=== PATIENT | female | born 1945 | race Caucasian/White ===

== ENCOUNTER 2016-05-17 01:30 | Inpatient (IN) | payer MEDICARE, MEDICAID ==
[~2016-05-17] VITALS: Ht 172.7 cm; Wt 96.3 kg
[~2016-05-17 01:30] MED LIST: CARI350T14 PO; CLON-364 PO; DABI150C PO; DILT180C95 PO; DIVA500T2 PO; DOCU100C8 PO; FURO40TA6 PO; HYDR-3241 PO; MIRT30TA4 PO; NITR50CA PO; POTA20TA89 PO; SPIR25TA3 PO; TOPI50TA35 PO; ZOLP10TA PO
[2016-05-17] MEDS ORDERED: SODIUM CHLORIDE FLUSH 10ML SYR IVF ONE (02:00)
[2016-05-17 03:46] LABS: HEMOGLOBIN 14.7 g/dL (11.7-16.4)
[2016-05-17 04:04] LABS: IS PT STATUS REG ER OR PRE ER? YES
[2016-05-17 04:15] LABS: ASPARTATE AMINO TRANSFERASE 14 U/L (15-37); BLOOD UREA NITROGEN 15 mg/dL (7-18)
[2016-05-17] MEDS ORDERED: ACETAMINOPHEN 325 MG TABLET PO PRN (07:00)
[2016-05-17] MEDS ORDERED: ONDANSETRON 2MG/ML, 2ML IVP PRN (07:00)
[2016-05-17] MEDS: SODIUM CHLORIDE 0.9% 1,000 ML IV SCH ×3 (07:00→23:39)
[2016-05-17] MEDS: DOCUSATE 100 MG CAPSULE PO SCH ×2 (09:00→20:52)
[2016-05-17] MEDS: DILTIAZEM 240 MG CAP.ER.24H PO SCH (10:07)
[2016-05-17] MEDS: SPIRONOLACTONE 25 MG TABLET PO SCH (10:07)
[2016-05-17] MEDS: SENNA/DOCUSATE TABLET PO SCH (10:07)
[2016-05-17] MEDS: TOPIRAMATE 25 MG TABLET PO SCH ×2 (10:07→20:55)
[2016-05-17] MEDS: DIVALPROEX 500 MG TABLET.DR PO SCH ×2 (10:07→20:52)
[2016-05-17] MEDS: POTASSIUM CHLORIDE 20 MEQ TAB.ER.PRT PO SCH ×2 (10:08→20:53)
[2016-05-17] MEDS: DABIGATRAN 150 MG CAPSULE PO SCH ×2 (10:10→20:53)
[2016-05-17] MEDS: CEFTRIAXONE PMX 2GM/50ML 50 ML IV SCH (11:30)
[2016-05-17 12:30] VITALS: BP 120/77
[2016-05-17 19:01] VITALS: BP 106/56
[2016-05-17] MEDS: MIRTAZAPINE 15 MG TABLET PO SCH (20:54)
[2016-05-18 01:31] VITALS: BP 106/54
[2016-05-18] MEDS: SODIUM CHLORIDE 0.9% 1,000 ML IV SCH (04:48)
[2016-05-18 06:12] LABS: BLOOD UREA NITROGEN 13 mg/dL (7-18)
[2016-05-18 07:04] VITALS: BP 107/66
[2016-05-18] MEDS: CEFTRIAXONE PMX 2GM/50ML 50 ML IV SCH (07:30)
[2016-05-18] MEDS: DIVALPROEX 500 MG TABLET.DR PO SCH ×2 (08:36→20:13)
[2016-05-18] MEDS: DILTIAZEM 240 MG CAP.ER.24H PO SCH (08:36)
[2016-05-18] MEDS: SPIRONOLACTONE 25 MG TABLET PO SCH (08:36)
[2016-05-18] MEDS: DABIGATRAN 150 MG CAPSULE PO SCH ×2 (08:37→20:13)
[2016-05-18] MEDS: TOPIRAMATE 25 MG TABLET PO SCH ×2 (08:37→20:14)
[2016-05-18] MEDS: SENNA/DOCUSATE TABLET PO SCH (08:37)
[2016-05-18] MEDS: POTASSIUM CHLORIDE 20 MEQ TAB.ER.PRT PO SCH ×2 (08:37→20:13)
[2016-05-18] MEDS: DOCUSATE 100 MG CAPSULE PO SCH ×2 (08:37→20:14)
[2016-05-18] MEDS ORDERED: LORazepam 0.5MG TABLET PO ONE (09:30)
[2016-05-18 12:30] VITALS: BP 119/83
[2016-05-18 19:29] VITALS: BP 107/68
[2016-05-18] MEDS: MIRTAZAPINE 15 MG TABLET PO SCH (20:13)
[2016-05-19 01:43] VITALS: BP 95/66
[2016-05-19 07:00] VITALS: BP 104/79
[2016-05-19] MEDS: DIVALPROEX 500 MG TABLET.DR PO SCH ×2 (07:47→20:42)
[2016-05-19] MEDS: SPIRONOLACTONE 25 MG TABLET PO SCH (09:03)
[2016-05-19] MEDS: TOPIRAMATE 25 MG TABLET PO SCH ×2 (09:04→20:42)
[2016-05-19] MEDS: POTASSIUM CHLORIDE 20 MEQ TAB.ER.PRT PO SCH ×2 (09:04→20:42)
[2016-05-19] MEDS: DABIGATRAN 150 MG CAPSULE PO SCH ×2 (09:04→20:42)
[2016-05-19] MEDS: SENNA/DOCUSATE TABLET PO SCH (09:04)
[2016-05-19] MEDS: DILTIAZEM 240 MG CAP.ER.24H PO SCH (09:04)
[2016-05-19] MEDS: DOCUSATE 100 MG CAPSULE PO SCH ×2 (09:04→20:42)
[2016-05-19 13:05] VITALS: BP 136/76
[2016-05-19 19:34] VITALS: BP 122/68
[2016-05-19] MEDS: MIRTAZAPINE 15 MG TABLET PO SCH (20:42)
[2016-05-20 01:49] VITALS: BP 96/57
[2016-05-20] MEDS: DIVALPROEX 500 MG TABLET.DR PO SCH ×2 (07:47→21:56)
[2016-05-20 08:05] VITALS: BP 98/74
[2016-05-20] MEDS: SPIRONOLACTONE 25 MG TABLET PO SCH (09:22)
[2016-05-20] MEDS: DILTIAZEM CD 180 MG CAP.ER.24H PO SCH (09:23)
[2016-05-20] MEDS: DABIGATRAN 150 MG CAPSULE PO SCH ×2 (09:24→21:55)
[2016-05-20] MEDS: TOPIRAMATE 25 MG TABLET PO SCH ×2 (09:24→21:57)
[2016-05-20] MEDS: DOCUSATE 100 MG CAPSULE PO SCH ×2 (09:24→21:59)
[2016-05-20] MEDS: SENNA/DOCUSATE TABLET PO SCH (09:24)
[2016-05-20] MEDS: POTASSIUM CHLORIDE 20 MEQ TAB.ER.PRT PO SCH ×2 (09:25→21:59)
[2016-05-20 12:56] VITALS: BP 116/68
[2016-05-20 20:00] VITALS: BP 144/90
[2016-05-20] MEDS: MIRTAZAPINE 15 MG TABLET PO SCH (21:58)
[2016-05-21 02:26] VITALS: BP 109/70
[2016-05-21 06:27] VITALS: BP 116/78
[2016-05-21] MEDS: DABIGATRAN 150 MG CAPSULE PO SCH ×2 (08:03→20:15)
[2016-05-21] MEDS: POTASSIUM CHLORIDE 20 MEQ TAB.ER.PRT PO SCH ×2 (08:03→20:15)
[2016-05-21] MEDS: DOCUSATE 100 MG CAPSULE PO SCH ×2 (08:04→20:16)
[2016-05-21] MEDS: DILTIAZEM CD 180 MG CAP.ER.24H PO SCH (08:04)
[2016-05-21] MEDS: SENNA/DOCUSATE TABLET PO SCH (08:04)
[2016-05-21] MEDS: DIVALPROEX 500 MG TABLET.DR PO SCH ×2 (08:04→20:16)
[2016-05-21] MEDS: TOPIRAMATE 25 MG TABLET PO SCH (08:04)
[2016-05-21] MEDS: SPIRONOLACTONE 25 MG TABLET PO SCH (08:04)
[2016-05-21 14:08] VITALS: BP 113/79
[2016-05-21 20:44] VITALS: BP 117/77
[2016-05-22 02:02] VITALS: BP 119/75
[2016-05-22 06:39] VITALS: BP 124/83
[2016-05-22] MEDS: DOCUSATE 100 MG CAPSULE PO SCH (09:00)
[2016-05-22] MEDS: POTASSIUM CHLORIDE 20 MEQ TAB.ER.PRT PO SCH (09:20)
[2016-05-22] MEDS: DIVALPROEX 500 MG TABLET.DR PO SCH (09:21)
[2016-05-22] MEDS: DABIGATRAN 150 MG CAPSULE PO SCH (09:21)
[2016-05-22] MEDS: DILTIAZEM CD 180 MG CAP.ER.24H PO SCH (09:21)
[2016-05-22] MEDS: SENNA/DOCUSATE TABLET PO SCH (09:21)
[2016-05-22] MEDS: SPIRONOLACTONE 25 MG TABLET PO SCH (09:21)
[2016-05-22] MEDS ORDERED: DILT180C53 PO (12:54)
[2016-05-22] MEDS ORDERED: POTA20PA8 PO (13:07)
[2016-05-22 13:23] VITALS: BP 103/70
[2016-05-22 15:59] VITALS: BP 110/79
== END 2016-05-22 16:15 | DRG 948 ==
LOC: ED 03:51 → EDIP 06:53 → 4NOR 09:05
PROVIDERS: ADMIT Internal Medicine; ATTEND Internal Medicine
PROC: 0T9B70Z Drainage of Bladder with Drainage Device, Via Natural or Artificial Opening (ICD-10-PCS; principal; 2016-05-17)
DX: R53.1 Weakness (principal); E44.1 Mild protein-calorie malnutrition; W18.30XA Fall on same level, unspecified, initial encounter; I10 Essential (primary) hypertension; F31.9 Bipolar disorder, unspecified; M79.7 Fibromyalgia; Z66 Do not resuscitate; G89.4 Chronic pain syndrome; J44.9 Chronic obstructive pulmonary disease, unspecified; D75.89 Other specified diseases of blood and blood-forming organs; D69.6 Thrombocytopenia, unspecified; G40.909 Epilepsy, unspecified, not intractable, without status epilepticus; E03.9 Hypothyroidism, unspecified; D64.9 Anemia, unspecified; I48.2 Chronic atrial fibrillation; Z86.73 Personal history of transient ischemic attack (TIA), and cerebral infarction without residual deficits; Z90.710 Acquired absence of both cervix and uterus; Z88.8 Allergy status to other drugs, medicaments and biological substances; Z86.718 Personal history of other venous thrombosis and embolism; Z86.711 Personal history of pulmonary embolism; Z79.891 Long term (current) use of opiate analgesic; Z68.32 Body mass index [BMI] 32.0-32.9, adult
CPT/HCPCS: 36415; 70450; 70551; 71010; 72125; 80048; 80053; 81003; 82550; 82607; 82746; 83690; 83880; 84443; 84484; 85025; 85610; 86592; 87040; 93005; 93306; 93880; J0696; J7030

== ENCOUNTER 2016-06-12 10:54 | Inpatient (IN) | payer MEDICARE, MEDICAID ==
[~2016-06-12] VITALS: Ht 165.1 cm; Wt 94.8 kg
[~2016-06-12 10:54] MED LIST changes: +DILT180C53 PO; +POTA20PA8 PO
[2016-06-12] MEDS ORDERED: SODIUM CHLORIDE 0.9% 1,000 ML IV ONE (10:59)
[2016-06-12] MEDS ORDERED: SODIUM CHLORIDE 0.9% 1,000ML IVBOLUS ONE (11:00)
[2016-06-12] MEDS ORDERED: ONDANSETRON 2MG/ML, 2ML IVPush ONE (11:00)
[2016-06-12] MEDS ORDERED: NALOXONE 0.4 MG/ML, 1ML IVPush PRN (11:00)
[2016-06-12] MEDS ORDERED: ONDANSETRON 2MG/ML, 2ML ONE (11:06)
[2016-06-12] MEDS ORDERED: NALOXONE 0.4 MG/ML, 1ML ONE (11:06)
[2016-06-12] MEDS ORDERED: NS + 40MEQ KCL 1,000 ML IV SCH (11:30)
[2016-06-12 11:59] LABS: ASPARTATE AMINO TRANSFERASE 23 U/L (15-37); BLOOD UREA NITROGEN 20 mg/dL (7-18)
[2016-06-12 12:00] LABS: IS PT STATUS REG ER OR PRE ER? YES
[2016-06-12] MEDS ORDERED: LORazepam 2 MG/ML, 1ML ONE ×2 (12:28→13:11)
[2016-06-12] MEDS ORDERED: LORazepam 2 MG/ML, 1ML IVPush ONE ×2 (12:30→13:30)
[2016-06-12 12:44] LABS: DAU SCREEN DISCLAIMER
[2016-06-12] MEDS ORDERED: PLEASE ENTER ALLERGIES MC SCH ×2 (13:30)
[2016-06-12] MEDS ORDERED: ONDANSETRON 2MG/ML, 2ML IVP PRN (15:00)
[2016-06-12] MEDS ORDERED: GUAIFENESIN/DM 200-20MG, 10ML UDC PO PRN (15:00)
[2016-06-12] MEDS ORDERED: ONDANSETRON ODT 4 MG PO PRN (15:00)
[2016-06-12] MEDS ORDERED: POLYETHYLENE GLYCOL 17 GM PACKET PO PRN (15:00)
[2016-06-12] MEDS ORDERED: LABETALOL 20 MG/4 ML IV PRN (15:00)
[2016-06-12 16:36] LABS: IS PT STATUS REG ER OR PRE ER? NO
[2016-06-12 16:56] VITALS: BP 161/86
[2016-06-12] MEDS: SODIUM CHLORIDE 0.9% 1,000 ML IV SCH (17:06)
[2016-06-12 18:07] VITALS: BP 118/69
[2016-06-12 21:43] LABS: IS PT STATUS REG ER OR PRE ER? NO
[2016-06-12] MEDS: HYDROcodone/APAP 5/325 TABLET PO PRN (21:47)
[2016-06-12] MEDS: DIVALPROEX 500 MG TABLET.DR PO SCH (21:48)
[2016-06-12] MEDS: DABIGATRAN 150 MG CAPSULE PO SCH (21:48)
[2016-06-12 21:54] VITALS: BP 133/87
[2016-06-13 02:18] VITALS: BP 120/75
[2016-06-13] MEDS: SODIUM CHLORIDE 0.9% 1,000 ML IV SCH ×3 (02:22→21:22)
[2016-06-13 06:25] LABS: ASPARTATE AMINO TRANSFERASE 24 U/L (15-37); BLOOD UREA NITROGEN 15 mg/dL (7-18)
[2016-06-13] MEDS ORDERED: POTASSIUM CHLORIDE 20 MEQ TAB.ER.PRT PO ONE (08:30)
[2016-06-13] MEDS: DIVALPROEX 500 MG TABLET.DR PO SCH ×2 (08:49→21:22)
[2016-06-13] MEDS: SENNA/DOCUSATE TABLET PO SCH (08:49)
[2016-06-13] MEDS: DABIGATRAN 150 MG CAPSULE PO SCH ×2 (08:49→21:22)
[2016-06-13] MEDS: DILTIAZEM CD 180 MG CAP.ER.24H PO SCH (08:49)
[2016-06-13] MEDS: POTASSIUM CHLORIDE 20 MEQ PACKET PO SCH (08:49)
[2016-06-13 08:50] VITALS: BP 99/68
[2016-06-13] MEDS: HYDROcodone/APAP 5/325 TABLET PO PRN (09:10)
[2016-06-13 09:24] VITALS: BP 99/65
[2016-06-13] MEDS ORDERED: LORazepam 2 MG/ML, 1ML IVPush ONE (10:00)
[2016-06-13] MEDS ORDERED: DIGOXIN 0.25 MG/ML, 2ML IVPush ONE (10:00)
[2016-06-13 13:05] VITALS: BP 95/68
[2016-06-13] MEDS ORDERED: FLUMAZENIL 0.1 MG/1 ML, 5ML ONE ×2 (13:52→13:53)
[2016-06-13] MEDS ORDERED: FENTANYL PF 100 MCG/2ML ONE (13:52)
[2016-06-13] MEDS ORDERED: MIDAZOLAM 1 MG/ML, 5ML ONE (13:52)
[2016-06-13] MEDS ORDERED: GADOBUTROL 7.5 MMOL/7.5 ML PFS ONE (14:39)
[2016-06-13 18:31] VITALS: BP 98/63
[2016-06-14 01:30] VITALS: BP 116/80
[2016-06-14] MEDS: HYDROcodone/APAP 5/325 TABLET PO PRN ×3 (04:44→20:46)
[2016-06-14 06:08] LABS: ASPARTATE AMINO TRANSFERASE 20 U/L (15-37); BLOOD UREA NITROGEN 14 mg/dL (7-18)
[2016-06-14 06:40] VITALS: BP 114/79
[2016-06-14] MEDS: SODIUM CHLORIDE 0.9% 1,000 ML IV SCH ×2 (08:00→18:00)
[2016-06-14] MEDS: DIVALPROEX 500 MG TABLET.DR PO SCH ×2 (08:04→20:45)
[2016-06-14] MEDS: DILTIAZEM CD 180 MG CAP.ER.24H PO SCH (08:04)
[2016-06-14] MEDS: POTASSIUM CHLORIDE 20 MEQ PACKET PO SCH (08:05)
[2016-06-14] MEDS: DABIGATRAN 150 MG CAPSULE PO SCH ×2 (08:05→20:45)
[2016-06-14] MEDS: SENNA/DOCUSATE TABLET PO SCH (08:05)
[2016-06-14 12:38] VITALS: BP 108/71
[2016-06-14 20:01] VITALS: BP 88/56
[2016-06-14 20:28] VITALS: BP 94/62
[2016-06-15 01:18] VITALS: BP 92/62
[2016-06-15] MEDS: HYDROcodone/APAP 5/325 TABLET PO PRN ×3 (02:39→21:49)
[2016-06-15] MEDS: SODIUM CHLORIDE NASAL SPRAY 45ML BOTTLE NAS PRN (03:53)
[2016-06-15] MEDS: SODIUM CHLORIDE 0.9% 1,000 ML IV SCH ×2 (04:37→14:00)
[2016-06-15 05:44] LABS: ASPARTATE AMINO TRANSFERASE 13 U/L (15-37); BLOOD UREA NITROGEN 9 mg/dL (7-18)
[2016-06-15 05:56] LABS: IS PT STATUS REG ER OR PRE ER? NO
[2016-06-15 07:39] VITALS: BP 119/77
[2016-06-15] MEDS: DABIGATRAN 150 MG CAPSULE PO SCH ×2 (07:53→21:48)
[2016-06-15] MEDS: POTASSIUM CHLORIDE 20 MEQ PACKET PO SCH (07:56)
[2016-06-15] MEDS: DIVALPROEX 500 MG TABLET.DR PO SCH ×2 (07:56→21:48)
[2016-06-15] MEDS: DILTIAZEM CD 180 MG CAP.ER.24H PO SCH (07:56)
[2016-06-15] MEDS: SENNA/DOCUSATE TABLET PO SCH (07:56)
[2016-06-15 13:10] VITALS: BP 102/68
[2016-06-15] MEDS ORDERED: CETIRIZINE 10 MG TABLET PO PRN (14:30)
[2016-06-15 19:08] VITALS: BP 116/69
[2016-06-16 01:40] VITALS: BP 102/68
[2016-06-16] MEDS: HYDROcodone/APAP 5/325 TABLET PO PRN ×4 (04:04→18:45)
[2016-06-16 06:35] LABS: ASPARTATE AMINO TRANSFERASE 14 U/L (15-37); BLOOD UREA NITROGEN 6 mg/dL (7-18)
[2016-06-16 07:37] VITALS: BP 126/84
[2016-06-16] MEDS: SENNA/DOCUSATE TABLET PO SCH (07:57)
[2016-06-16] MEDS: DILTIAZEM CD 180 MG CAP.ER.24H PO SCH (07:57)
[2016-06-16] MEDS: POTASSIUM CHLORIDE 20 MEQ PACKET PO SCH (07:57)
[2016-06-16] MEDS: DIVALPROEX 500 MG TABLET.DR PO SCH ×2 (07:58→21:44)
[2016-06-16] MEDS: DABIGATRAN 150 MG CAPSULE PO SCH ×2 (07:58→21:44)
[2016-06-16 13:31] VITALS: BP 90/66
[2016-06-16 20:36] VITALS: BP 91/59
[2016-06-16 21:43] VITALS: BP 102/60
[2016-06-17] MEDS: HYDROcodone/APAP 5/325 TABLET PO PRN ×2 (01:13→20:34)
[2016-06-17] MEDS: SODIUM CHLORIDE NASAL SPRAY 45ML BOTTLE NAS PRN (01:14)
[2016-06-17 02:27] VITALS: BP 106/72
[2016-06-17 06:42] LABS: ASPARTATE AMINO TRANSFERASE 13 U/L (15-37); BLOOD UREA NITROGEN 10 mg/dL (7-18)
[2016-06-17 06:50] VITALS: BP 90/66
[2016-06-17] MEDS: SENNA/DOCUSATE TABLET PO SCH (08:15)
[2016-06-17] MEDS: DIVALPROEX 500 MG TABLET.DR PO SCH ×2 (08:15→20:34)
[2016-06-17] MEDS: DILTIAZEM CD 180 MG CAP.ER.24H PO SCH (08:15)
[2016-06-17] MEDS: DABIGATRAN 150 MG CAPSULE PO SCH ×2 (08:16→20:34)
[2016-06-17] MEDS: POTASSIUM CHLORIDE 20 MEQ PACKET PO SCH (08:16)
[2016-06-17 12:44] VITALS: BP 111/79
[2016-06-17 20:25] VITALS: BP 123/76
[2016-06-18] MEDS: HYDROcodone/APAP 5/325 TABLET PO PRN ×2 (01:30→05:40)
[2016-06-18 02:33] VITALS: BP 113/78
[2016-06-18 05:48] LABS: BLOOD UREA NITROGEN 9 mg/dL (7-18)
[2016-06-18 08:57] VITALS: BP 129/86
[2016-06-18] MEDS: SENNA/DOCUSATE TABLET PO SCH (09:08)
[2016-06-18] MEDS: DILTIAZEM CD 180 MG CAP.ER.24H PO SCH (09:08)
[2016-06-18] MEDS: DABIGATRAN 150 MG CAPSULE PO SCH (09:08)
[2016-06-18] MEDS: POTASSIUM CHLORIDE 20 MEQ PACKET PO SCH (09:08)
[2016-06-18] MEDS: DIVALPROEX 500 MG TABLET.DR PO SCH (09:08)
== END 2016-06-18 11:05 | disposition home health service (06) | DRG 70 ==
LOC: ED 11:17 → EDIP 11:18 → ED 12:24 → 4EST 15:18 → DCLOUNGE 06-18 10:41
PROVIDERS: ADMIT Hospitalist; ATTEND Hospitalist
PROC: 0T9B70Z Drainage of Bladder with Drainage Device, Via Natural or Artificial Opening (ICD-10-PCS; principal; 2016-06-12)
DX: G93.40 Encephalopathy, unspecified (principal); E43 Unspecified severe protein-calorie malnutrition; D68.69 Other thrombophilia; J98.11 Atelectasis; I82.511 Chronic embolism and thrombosis of right femoral vein; D69.6 Thrombocytopenia, unspecified; D75.89 Other specified diseases of blood and blood-forming organs; E87.6 Hypokalemia; I10 Essential (primary) hypertension; M79.7 Fibromyalgia; E03.9 Hypothyroidism, unspecified; F31.9 Bipolar disorder, unspecified; G89.4 Chronic pain syndrome; R73.9 Hyperglycemia, unspecified; I48.2 Chronic atrial fibrillation; R29.6 Repeated falls; Z66 Do not resuscitate; J44.9 Chronic obstructive pulmonary disease, unspecified; Z79.01 Long term (current) use of anticoagulants; Y92.009 Unspecified place in unspecified non-institutional (private) residence as the place of occurrence of the external cause; Z79.891 Long term (current) use of opiate analgesic; Z86.711 Personal history of pulmonary embolism; Z86.73 Personal history of transient ischemic attack (TIA), and cerebral infarction without residual deficits; Z87.440 Personal history of urinary (tract) infections; Z68.34 Body mass index [BMI] 34.0-34.9, adult; Z90.710 Acquired absence of both cervix and uterus; Z88.8 Allergy status to other drugs, medicaments and biological substances
CPT/HCPCS: 36415; 70450; 70553; 71010; 80048; 80053; 80307; 81001; 82040; 82140; 82607; 82746; 83605; 83690; 83735; 84439; 84443; 84484; 85025; 85610; 86592; 93005; 93970; 95819; 96361; 96374; 96375; A9585; J2250; J2310; J2405; J3010; J1160; J2060; J7030

== ENCOUNTER 2016-12-28 01:03 | Inpatient (IN) | payer MEDICARE, MEDICAID ==
[~2016-12-28] VITALS: Ht 172.7 cm; Wt 88.1 kg
[~2016-12-28 01:03] MED LIST changes: +DILT180C84 PO; -DILT180C95 PO; +DOCU100C33 PO; -DOCU100C8 PO; +POTA20PA25 PO; -POTA20PA8 PO
[2016-12-28] MEDS ORDERED: SODIUM CHLORIDE FLUSH 10ML SYR IVF ONE (02:00)
[2016-12-28 02:13] LABS: HEMATOCRIT 50.9 % (34.6-47.8); HEMOGLOBIN 17.2 g/dL (11.7-16.4); WHITE BLOOD COUNT 6.7 x10^3/uL (3.4-10)
[2016-12-28 02:23] LABS: BLOOD UREA NITROGEN 14 mg/dL (7-18)
[2016-12-28] MEDS ORDERED: SODIUM CHLORIDE 0.9% 1,000ML IVBOLUS ONE (03:00)
[2016-12-28 03:04] LABS: PATH.CAST-FLAG NOT PRESENT; SPERM-FLAG NOT PRESENT; SRC-FLAG NOT PRESENT; XTAL-FLAG NOT PRESENT; YLC-FLAG NOT PRESENT
[2016-12-28] MEDS ORDERED: POLYETHYLENE GLYCOL 17 GM PACKET PO PRN (05:00)
[2016-12-28] MEDS ORDERED: ACETAMINOPHEN 325 MG TABLET PO PRN (05:00)
[2016-12-28 08:48] VITALS: BP 128/83
[2016-12-28] MEDS ORDERED: DILTIAZEM CD 180 MG CAP.ER.24H PO SCH (09:00)
[2016-12-28] MEDS ORDERED: DOCUSATE 100 MG CAPSULE PO SCH (09:00)
[2016-12-28] MEDS: POTASSIUM CHLORIDE 20 MEQ PACKET PO SCH (10:43)
[2016-12-28] MEDS: FUROSEMIDE 40 MG TABLET PO SCH (10:44)
[2016-12-28] MEDS: DABIGATRAN 150 MG CAPSULE PO SCH ×2 (10:44→20:28)
[2016-12-28 13:09] VITALS: BP 105/72
[2016-12-28] MEDS: SODIUM CHLORIDE 0.9% 1,000 ML IV SCH ×2 (14:03→22:57)
[2016-12-28 20:00] VITALS: BP 120/87
[2016-12-28] MEDS: DOCUSATE 100 MG CAPSULE PO SCH (20:28)
[2016-12-29 02:00] VITALS: BP 117/80
[2016-12-29 07:15] LABS: HEMATOCRIT 42.5 % (34.6-47.8); WHITE BLOOD COUNT 4.7 x10^3/uL (3.4-10)
[2016-12-29 07:23] LABS: BLOOD UREA NITROGEN 16 mg/dL (7-18)
[2016-12-29 08:10] VITALS: BP 129/75
[2016-12-29 09:22] LABS: DIFF TOTAL CELLS COUNTED 100 CELL DIFF
[2016-12-29 09:25] LABS: VERIFY COUNTS? YES
[2016-12-29] MEDS: DABIGATRAN 150 MG CAPSULE PO SCH ×2 (10:05→20:04)
[2016-12-29] MEDS: DILTIAZEM CD 180 MG CAP.ER.24H PO SCH (10:05)
[2016-12-29] MEDS: DOCUSATE 100 MG CAPSULE PO SCH ×2 (10:05→20:04)
[2016-12-29] MEDS: FUROSEMIDE 40 MG TABLET PO SCH (10:06)
[2016-12-29] MEDS: POTASSIUM CHLORIDE 20 MEQ PACKET PO SCH (10:06)
[2016-12-29] MEDS: SODIUM CHLORIDE 0.9% 1,000 ML IV SCH ×2 (10:07→18:14)
[2016-12-29 13:27] VITALS: BP 110/74
[2016-12-29 20:00] VITALS: BP 104/72
[2016-12-30 02:00] VITALS: BP 113/76
[2016-12-30] MEDS: SODIUM CHLORIDE 0.9% 1,000 ML IV SCH (04:53)
[2016-12-30 10:18] VITALS: BP 115/79
[2016-12-30] MEDS: FUROSEMIDE 40 MG TABLET PO SCH (10:23)
[2016-12-30] MEDS: DILTIAZEM CD 180 MG CAP.ER.24H PO SCH (10:23)
[2016-12-30] MEDS: DOCUSATE 100 MG CAPSULE PO SCH ×2 (10:23→21:00)
[2016-12-30] MEDS: POTASSIUM CHLORIDE 20 MEQ PACKET PO SCH (10:24)
[2016-12-30] MEDS: DABIGATRAN 150 MG CAPSULE PO SCH ×2 (10:24→21:04)
[2016-12-30 15:20] VITALS: BP 111/75
[2016-12-30 19:22] VITALS: BP 116/78
[2016-12-31 01:22] VITALS: BP 110/72
[2016-12-31 08:00] VITALS: BP 121/69
[2016-12-31] MEDS: DOCUSATE 100 MG CAPSULE PO SCH (09:00)
[2016-12-31] MEDS: DABIGATRAN 150 MG CAPSULE PO SCH (09:38)
[2016-12-31] MEDS: DILTIAZEM CD 180 MG CAP.ER.24H PO SCH (09:39)
[2016-12-31] MEDS: FUROSEMIDE 40 MG TABLET PO SCH (09:39)
[2016-12-31] MEDS: POTASSIUM CHLORIDE 20 MEQ PACKET PO SCH (09:39)
[2016-12-31 14:00] VITALS: BP 110/73
== END 2016-12-31 17:16 | DRG 948 ==
LOC: ED 01:33 → EDIP 04:54 → 4EST 06:35
PROVIDERS: ADMIT Family Medicine; ATTEND Family Medicine
DX: R41.82 Altered mental status, unspecified (principal); E46 Unspecified protein-calorie malnutrition; E87.1 Hypo-osmolality and hyponatremia; I50.9 Heart failure, unspecified; I48.91 Unspecified atrial fibrillation; I11.0 Hypertensive heart disease with heart failure; R56.9 Unspecified convulsions; Z99.81 Dependence on supplemental oxygen; J44.9 Chronic obstructive pulmonary disease, unspecified; E03.9 Hypothyroidism, unspecified; I25.10 Atherosclerotic heart disease of native coronary artery without angina pectoris; R31.9 Hematuria, unspecified; G89.29 Other chronic pain; F31.9 Bipolar disorder, unspecified; F03.90 Unspecified dementia, unspecified severity, without behavioral disturbance, psychotic disturbance, mood disturbance, and anxiety; Z68.29 Body mass index [BMI] 29.0-29.9, adult; Z86.73 Personal history of transient ischemic attack (TIA), and cerebral infarction without residual deficits; Z87.891 Personal history of nicotine dependence; Z88.8 Allergy status to other drugs, medicaments and biological substances; T40.605A Adverse effect of unspecified narcotics, initial encounter; T42.6X5A Adverse effect of other antiepileptic and sedative-hypnotic drugs, initial encounter
CPT/HCPCS: 36415; 71010; 80048; 81001; 82040; 83605; 84145; 84443; 85025; 85610; 85730; 87040; 93005; 96360; J7030